=== PATIENT | female | born 1950 | race Caucasian/White ===

== ENCOUNTER 2016-08-06 16:00 | Emergency (ER) | payer MEDICARE ==
[2016-08-06 16:11] VITALS: PULSE 85; O2SAT 96
--- NOTE | 2016-08-06 16:26 | ERPHSYRPT ---
- History of Present Illness Time Seen by Provider: 08/06/16 16:23 Source: patient Exam Limitations: no limitations Patient Subjective Stated Complaint: PT STATES THAT SHE WENT TO THE [facility] TO CHECK HER. BLOOD PRESSURE TODAY AFTER SHE WOKE UP WITH A BLOOD. VESSEL IN HER EYE POPPED STATES HER BP WAS 180/119. PT STATES "I FEEL FINE" STATES TOOK HER BP MEDS. TOOK ONE AT 1500 Triage Nursing Assessment: PT ALERT WARM AND DRY RESP EASY NON LABORED PT AMBULATED TO ROOM WITHOUT DIFFICUTLY Physician History: c/o ruptured blood vessels in her left conjunctiva, also blood pressure was high at home but she thought she forgot to take her blood pressure meds in AM so she just took it before coming to ER Timing/Duration: today Associated Symptoms: denies symptoms Allergies/Adverse Reactions: acetaminophen [From Darvocet-N] Allergy (Verified 08/06/16 16:06) Antihistamines - Alkylamine Allergy (Verified 08/06/16 16:06) methylprednisolone [From Solu-Medrol] Allergy (Verified 08/06/16 16:06) propoxyphene [From Darvocet-N] Allergy (Verified 08/06/16 16:06) Sulfa (Sulfonamide Antibiotics) Allergy (Verified 08/06/16 16:06) Hx Tetanus, Diphtheria Vaccination/Date Given: Yes Hx Influenza Vaccination/Date Given: No Hx Pneumococcal Vaccination/Date Given: No Immunizations Up to Date: Yes - Review of Systems Constitutional: No Symptoms Eyes: Other (red eye left side) Ears, Nose, & Throat: No Symptoms Respiratory: No Symptoms Cardiac: No Symptoms Abdominal/Gastrointestinal: No Symptoms Genitourinary Symptoms: No Symptoms Musculoskeletal: No Symptoms Skin: No Symptoms - Past Medical History Neurological History: No Pertinent History Cardiac History: No Pertinent History, Hypertension Respiratory History: No Pertinent History Endocrine Medical History: No Pertinent History Musculoskeletal History: No Pertinent History, Rheumatoid Arthritis Other Medical History: NO OTHER PMH NOTED - Past Surgical History Past Surgical History: No - Social History Smoking Status: Current every day smoker How long have you smoked: 40 YEARS Exposure to second hand smoke: Yes Drug Use: none Patient Lives Alone: No - Female History Hx Last Menstrual Period: N/A - Nursing Vital Signs Nursing Vital Signs: Initial Vital Signs Temperature 98.6 F Temperature Source Oral Pulse Rate 85 Respiratory Rate 18 Blood Pressure [Right Arm] 186/84 - Physical Exam General Appearance: no apparent distress Eye Exam: PERRL/EOMI, other (conjuctival blood vessel rupture left eye) Neck Exam: normal inspection Respiratory Exam: normal breath sounds Cardiovascular Exam: regular rate/rhythm SpO2: 96 Oxygen Delivery: Room Air - Course Nursing assessment & vital signs reviewed: Yes - Progress Progress: unchanged Counseled pt/family regarding: diagnosis, need for follow-up - Departure Time of Disposition: 16:25 Departure Disposition: Home Clinical Impression: Conjunctival hemorrhage of left eye Hypertension Qualifiers: Hypertension type: essential hypertension Qualified Code(s): I10 - Essential ( primary) hypertension Condition: Stable Critical Care Time: No Referrals: NUBIA JARRETT [Primary Care Provider] - Additional Instructions: Please follow the instructions given to you. Please take your medication as prescribed if given. If symptoms recur or get worse, come back to the emergency room if you cannot reach your primary care physician, or call your primary care physician for an appointment. Again if your symptoms get worse, come back to the emergency room. Thanks for visiting emergency room, and let us take care of you.
[2016-08-06 16:34] VITALS: BP 143/74
== END 2016-08-06 16:34 | disposition home or self-care (01) ==
LOC: ED 16:00
DX: H11.32 Conjunctival hemorrhage, left eye (principal); I10 Essential (primary) hypertension
CPT/HCPCS: 99282

== ENCOUNTER 2023-01-02 16:28 | Observation (INO) | payer MEDICARE ==
[2023-01-02] MEDS ORDERED: TYLENOL 325 MG PO PRN (17:30)
[2023-01-02] MEDS ORDERED: Sodium Chloride 0.9% 1000 ML 1,000 ML IV SCH (18:30)
--- NOTE | 2023-01-02 19:18 | PCM.HP ---
History of Present Illness - Chief Complaint Chief Complaint: Anemia Date: 01/02/23 History of Present Illness: 72-year-old woman with a history of rheumatoid arthritis, hypertension, and sinus drainage, who presents from clinic with anemia. Patient is on chronic medications for arthritis, including heavy doses of ibuprofen, and gets regular labs from her physician in [place]. She had labs drawn recently, and was told to go to local clinic because of anemia, with hemoglobin 7.0. She was seen today in clinic, and repeat hemoglobin confirmed was low. Patient was told to come to the hospital and was admitted directly. Patient denies any dyspnea, hematochezia, melena, or hematemesis. No prior history of anemia or iron deficiency. However, she takes 8 to 10 tablets of ibuprofen each day for management of her pain, and has been doing the same for many years. She denies nausea or abdominal pain. Denies dyspnea on exertion, able to walk around [employer] shopping today. She has never had a colonoscopy, but has been doing fecal occult blood testing for her colon cancer screening. This was last done 2 years ago, and has always been negative. - Review of Systems Constitutional: No Fever, No Chills, No Weakness Eyes: No Discharge, No Eye Pain Ears, Nose, & Throat: No Symptoms Respiratory: No Cough, No Short Of Breath, No Wheezing Cardiac: Edema (Bilateral foot edema for the last few weeks), No Chest Pain, No Palpitations Abdominal/Gastrointestinal: No Abdominal Pain, No Nausea, No Vomiting, No Hematemesis, No Hematochezia, No Melena, No Appetite Changes Genitourinary Symptoms: No Dysuria, No Hematuria Musculoskeletal: Joint Pain (Chronic) Skin: No Symptoms Neurological: No Dizziness, No Focal Weakness, No Headache Psychological: No Symptoms Endocrine: No Symptoms Hematologic/Lymphatic: No Blood Clots, No Easy Bleeding, No Gum Bleeding, No Easy Bruising Immunological/Allergic: No Symptoms Medications & Allergies Home Medications: Home Medication List Aspirin 81 gm Chew [Baby Aspirin 81 mg Chew] 81 mg PO DAILY 01/02/23 [History Confirmed 01/02/23] Calcium Carbonate/Vitamin D3 [Calcium 500-Vit D3 200 Tablet] 1 each PO DAILY 01/02/23 [History Confirmed 01/02/23] Diazepam 5 mg [Valium 5 MG] 5 mg PO DAILY PRN PRN 01/02/23 [History Confirmed 01/02/23] Famotidine 20 mg [Pepcid 20 MG] 40 mg PO HS 01/02/23 [History Confirmed 01/02/23] Ferrous Sulfate 325 mg [Feosol 325 mg] 325 mg PO BID 01/02/23 [History Confirmed 01/02/23] Labetalol HCl 100 mg [Trandate 100 MG] 200 mg PO UD 01/02/23 [History Confirmed 01/02/23] Losartan/Hydrochlorothiazide [Losartan-Hctz 50-12.5 mg Tab] 50 mg PO DAILY 01/02/23 [History Confirmed 01/02/23] Nitrofurantoin Macrocrystal [Macrodantin] 50 mg PO HS 01/02/23 [History Confirmed 01/02/23] RX: Amlodipine Besylate 10 mg PO DAILY 01/02/23 [History Confirmed 01/02/23] RX: Atorvastatin Calcium 20 mg PO HS 01/02/23 [History Confirmed 01/02/23] RX: Cephalexin Mh 250 mg [Keflex 250 mg] 250 mg PO DAILY 01/02/23 [History Confirmed 01/02/23] RX: Chlorthalidone 25 mg PO DAILY 01/02/23 [History Confirmed 01/02/23] RX: Ipratropium [place] 0.5 mg [Atrovent 0.5MG NEBULE] 42 mcg IH TID 01/02/23 [History Confirmed 01/02/23] Spironolactone 25 mg [Aldactone 25 MG] 25 mg PO DAILY 01/02/23 [History Confirmed 01/02/23] Tofacitinib Citrate [Xeljanz] 5 mg PO BID 01/02/23 [History Confirmed 01/02/23] Tramadol HCl 50 mg [Ultram 50 mg] 50 mg PO TID PRN 01/02/23 [History Co nfirmed 01/02/23] Allergies/Adverse Reactions: Allergies Allergy/AdvReac Type Severity Reaction Status Date / Time acetaminophen Allergy Verified 08/06/16 16:06 [From Clarisse] Antihistamines - Alkylamine Allergy Verified 08/06/16 16:06 methylprednisolone Allergy Verified 08/06/16 16:06 [From Solu-Medrol] propoxyphene Allergy Verified 08/06/16 16:06 [From Darvocet-N] Sulfa (Sulfonamide Allergy Verified 08/06/16 16:06 Antibiotics) - Past Medical History Past Medical History: Yes Neurological History: No Pertinent History ENT History: No Pertinent History Cardiac History: High Cholesterol, Hypertension Respiratory History: No Pertinent History Endocrine Medical History: No Pertinent History Musculoskelatal History: Rheumatoid Arthritis GI Medical History: No Pertinent History History: No Pertinent History Comment: NO SX HX. RECURRENT UTIs - TAKING LO DOSE ANTIBIOTIC PROPHYLACTICALLY - Female History Are you now?: No - Past Surgical History Past Surgical History: No - Social History Smoking Status: Current every day smoker How long have you smoked: 40 YEARS Exposure to second hand smoke: Yes Alcohol: None Drug Use: none Significant Family History: no pertinent family hx - Physical Exam Vital Signs: Vital Signs - 24 hr Temp Pulse Resp BP Pulse Ox 01/02/23 16:59 97.1 F 86 19 134/63 92 L General Appearance: no apparent distress Neurologic Exam: alert, oriented x 3, normal mood/affect Respiratory Exam: normal breath sounds, No lungs clear, No respiratory distress Cardiovascular Exam: regular rate/rhythm, normal heart sounds, No murmur Gastrointestinal/Abdomen Exam: soft, No tenderness, No distention Results - Labs Lab/Micro Results: WBC 10.2, hemoglobin 7.3, platelet 445, MCV 78 Sodium 141, potassium 4.3, chloride 109, carbon oxide 22, BUN 18, creatinine 1.1, glucose 109 Iron 20, TIBC 521, iron saturation 4%, ferritin 4.4 Total protein 6.9, albumin 3.9, total bilirubin 0.5, AST 28, ALT 27, alk phos 77 Vitamin B12 483, folic acid greater than 19 - Radiology Impressions Radiology Exams & Impressions: Chest x-ray: Mild cephalization, but no infiltrate, effusion, or consolidation. (Images personally reviewed.) Assessment/Plan (1) Iron deficiency anemia Current Visit: Yes Status: Acute Assessment & Plan: 72-year-old woman with a history of arthritis and hypertension, here with asymptomatic iron-deficiency anemia. ## Iron-deficiency anemia no obvious source of bleeding. Most likely has a slow bleed in the GI tract. Biggest risk factor is gastritis or ulcer secondary to heavy use of NSAID, with 10 pills of ibuprofen per day. Per patient, no symptoms, but hemoglobin down to 7, and severely iron deficient. - Transfuse 1 unit PRBCs - Ferrous sulfate BID, famotidine 20 QHS, both started today in clinic - Repeat CBC in the morning - Check fecal occult blood - Will need referral for outpatient GI evaluation for upper and likely lower endoscopy - Encouraged to stop taking ibuprofen ## Rheumatoid arthritis - Continue home Xeljanz 5 BID - PRN tramadol ## Hypertension blood pressure currently controlled - Continue chlorthalidone 25, labetalol 200 daily, losartan 50 mg daily, and HCTZ 12.5 mg daily, amlodipine 10 mg daily, spironolactone 25 daily ## Recurrent UTI - Continue home suppressive Keflex and nitrofurantoin CODE STATUS: Full code Prophylaxis: SCDs, avoiding pharmacologic prophylaxis due to GI bleeding Dispo, likely home tomorrow if appropriate response to transfusion, with follow- up as an outpatient with GI for endoscopy Entirety of encounter took place via telemedicine. Patient consented to telemedicine. Code(s): D50.9 - IRON DEFICIENCY ANEMIA, UNSPECIFIED Telemedicine Encounter - Telemedicine Encounter Telemedicine Encounter: The entirety of this encounter was performed via Telemedicine"
[2023-01-02] MEDS ORDERED: ULTRAM 50 MG PO PRN (20:10)
[2023-01-02] MEDS ORDERED: Valium 5 MG PO PRN (20:12)
[2023-01-02] MEDS ORDERED: SODIUM CHLORIDE 0.45% IV ONE (20:19)
[2023-01-02] MEDS ORDERED: Pepcid 20 MG PO SCH (22:00)
[2023-01-02] MEDS ORDERED: ZOCOR 20MG PO SCH (22:00)
[2023-01-02] MEDS: FEOSOL 325 MG PO SCH (22:45)
[2023-01-03] MEDS ORDERED: Nicoderm CQ 21 MG TOP SCH ×2 (01:00→22:00)
[2023-01-03 02:34] LABS: Absolute Neutrophil Ct (ANC) 7.89 x10^3/uL (1.4-6.9); BASOPHIL % 0.5 % (0.0-0.4); Basophil (Absolute #) 0.05 x10^3/uL (0-0.4); Eosinophil % 1.2 % (0.00-5.0); Eosinophil (Absolute #) 0.12 x10^3/uL (0-0.5); Hematocrit 32.3 % (35-47); Hemoglobin 9.4 g/dL (12.0-16.0); IMMATURE GRAN # 0.07 x10^3u/L (0.00-0.03); IMMATURE GRAN % 0.7 % (0.00-0.4); Lymphocyte (Absolute #) 0.95 x10^3/uL (1.0-4.6); Lymphocytes % 9.3 % (24.0-44.0); Mean Cell Volume 78.6 fL (78-100); Mean Corpuscular Hemoglobin 22.9 pg (26-32); Mean Corpuscular Hgb Concent. 29.1 g/dL (32-36); Mean Platelet Volume 9.6 fL (7.5-11.0); Monocyte (Absolute #) 1.13 x10^3/uL (0.0-1.3); Monocytes % 11.1 % (0.0-12.0); NUCLEATED RBC # 0.02 x10^3u/L (0.00-0.01); NUCLEATED RBC % 0.2 % (0.00-0.1); Neutrophil % 77.2 % (36.0-66.0); Platelet Count 395 x10^3/uL (150-450); Red Blood Count 4.11 x10^6/uL (4.1-5.4); Red Cell Distribution Width 19.3 % (11.5-14.0); White Blood Count 10.2 x10^3/uL (4.0-10.5)
[2023-01-03 02:38] LABS: ANION GAP 14.7 MEQ/L (5-15); BLOOD UREA NITROGEN 15 mg/dL (7-17); CHLORIDE 109 mmol/L (98-107); Carbon Dioxide 20 mmol/L (22-30); Creatinine 1 0.95 mg/dL (0.52-1.04); EST GLOMERULAR FILTRATION RATE > 60.0 ML/MIN; Glucose 77 mg/dL (74-106); Potassium 3.8 mmol/L (3.5-5.1); SODIUM 140 mmol/L (137-145)
[2023-01-03] MEDS ORDERED: TYLENOL 325 MG ONE (06:17)
[2023-01-03 07:22] VITALS: BP 177/76; PULSE 91; O2SAT 96
[2023-01-03] MEDS ORDERED: Valium 5 MG PO PRN (07:30)
[2023-01-03] MEDS ORDERED: MEDICATION INTERVENTION MC SCH ×2 (07:45)
[2023-01-03] MEDS: FEOSOL 325 MG PO SCH (09:15)
[2023-01-03] MEDS ORDERED: CHLORTHALIDONE PO SCH (10:00)
[2023-01-03] MEDS ORDERED: Cozaar 50 MG PO SCH (10:00)
[2023-01-03] MEDS ORDERED: Calcium 500MG W/Vit D Tablet PO SCH ×2 (10:00)
[2023-01-03] MEDS ORDERED: BABY ASPIRIN 81 MG CHEW PO SCH (10:00)
[2023-01-03] MEDS ORDERED: hydroDIURIL 25 MG PO SCH (10:00)
[2023-01-03] MEDS ORDERED: TOFACITINIB CITRATE 10 MG PO SCH (10:00)
[2023-01-03] MEDS ORDERED: NORVASC 5 MG PO SCH (10:00)
[2023-01-03] MEDS ORDERED: Trandate 100 MG PO SCH ×2 (10:00→22:00)
[2023-01-03] MEDS ORDERED: NON-FORMULARY ITEM (Amlodipine Besylate [Amlodipine Besylate] 10 MG Tablet) PO SCH (10:00)
[2023-01-03] MEDS ORDERED: NON-FORMULARY ITEM (Losartan/Hydrochlorothiazide [Losartan-Hctz 50-12.5 Mg Tab] 1 EACH Tab PO SCH (10:00)
[2023-01-03] MEDS ORDERED: ECOTRIN 81 MG PO SCH (10:00)
[2023-01-03] MEDS ORDERED: Aldactone 25 MG PO SCH (10:00)
[2023-01-03] MEDS ORDERED: Atrovent 0.5MG NEBULE IH SCH (10:00)
--- NOTE | 2023-01-03 10:41 | PCM.DS ---
Discharge Summary Date of Admission: 01/02/23 16:44 Date of Discharge: 01/03/2023 Admitting Physician: ANSELMO SCHROEDER MD Primary Care Provider: DEANDRE TAMAYO Allergies Allergies acetaminophen [From Darvocet-N] Allergy (Verified 08/06/16 16:06) Antihistamines - Alkylamine Allergy (Verified 08/06/16 16:06) methylprednisolone [From Solu-Medrol] Allergy (Verified 08/06/16 16:06) propoxyphene [From Darvocet-N] Allergy (Verified 08/06/16 16:06) Sulfa (Sulfonamide Antibiotics) Allergy (Verified 08/06/16 16:06) Hospital Summary - Hospital Course Hospital Course: 72-year-old with a history of arthritis, hypertension, and chronic sinus draina ge, who was admitted from clinic after found to have severe anemia with hemoglobin 7. Patient has a heavy use of ibuprofen, up to 10 pills a day for years, for treatment of pain from her arthritis. She denies any dyspnea, hematochezia, melena, or hematemesis. No prior history of anemia or iron defic iency. However, on lab work, confirmed hemoglobin was 7.3, and had severe iron- deficiency, with a ferritin of 4 and an iron saturation of 4%. She was transfused 1 unit of packed red blood cells, with appropriate increase of hemoglobin from 7-9.3. She was started on ferrous sulfate BID and famotidine QHS. Counseled patient on need to stop ibuprofen, and will need an outpatient GI evaluation for upper and likely lower endoscopy. Patient understood plan, and will arrange for GI follow-up. Entirety of encounter took place via telemedicine. Patient consented to telemedicine. Greater than 30 minutes managing discharge. - Vitals & Intake/Output Vital Signs: Vital Signs Temperature 98.2 F 01/03/23 07:21 Pulse Rate 91 H 01/03/23 07:21 Respiratory Rate 18 01/03/23 07:21 Blood Pressure 177/76 01/03/23 07:21 O2 Sat by Pulse Oximetry 96 01/03/23 07:21 Intake & Output: Intake & Output 12/31/22 01/01/23 01/02/23 01/03/23 11:59 11:59 11:59 11:59 Intake Total 1485 Output Total 1050 Balance 435 Weight 87 kg - Lab Result Diagrams: 01/03/23 02:24 01/03/23 02:24 Lab Results-Last 24 Hrs: Lab Results-Last 24 Hours 01/03/23 01/03/23 Range/Units 02:24 02:24 WBC 10.2 (4.0-10.5) x10^3/uL RBC 4.11 (4.1-5.4) x10^6/uL Hgb 9.4 L D (12.0-16.0) g/dL Hct 32.3 L (35-47) % MCV 78.6 (78-100) fL MCH 22.9 L (26-32) pg MCHC 29.1 L (32-36) g/dL RDW 19.3 H (11.5-14.0) % Plt Count 395 (150-450) x10^3/uL MPV 9.6 (7.5-11.0) fL Gran % 77.2 H (36.0-66.0) % Immature Gran % (Auto) 0.7 H (0.00-0.4) % Nucleat RBC Rel Count 0.2 H (0.00-0.1) % Eos # (Auto) 0.12 (0-0.5) x10^3/uL Immature Gran # (Auto) 0.07 H (0.00-0.03) x10^3u/L Absolute Lymphs (auto) 0.95 L (1.0-4.6) x10^3/uL Absolute Monos (auto) 1.13 (0.0-1.3) x10^3/uL Absolute Nucleated RBC 0.02 H (0.00-0.01) x10^3u/L Lymphocytes % 9.3 L (24.0-44.0) % Monocytes % 11.1 (0.0-12.0) % Eosinophils % 1.2 (0.00-5.0) % Basophils % 0.5 (0.0-0.4) % Absolute Granulocytes 7.89 H (1.4-6.9) x10^3/uL Basophils # 0.05 (0-0.4) x10^3/uL Sodium 140 (137-145) mmol/L Potassium 3.8 (3.5-5.1) mmol/L Chloride 109 H (98-107) mmol/L Carbon Dioxide 20 L (22-30) mmol/L Anion Gap 14.7 (5-15) MEQ/L BUN 15 (7-17) mg/dL Creatinine 0.95 (0.52-1.04) mg/dL Estimated GFR > 60.0 ML/MIN Glucose 77 (74-106) mg/dL Calcium 9.0 (8.4-10.2) mg/dL Discharge Exam General Appearance: no apparent distress Neurologic Exam: alert, oriented x 3, normal mood/affect, sensation nml, No motor deficits Eye Exam: eyes nml inspection Ears, Nose, Throat Exam: No dry mucous membranes Respiratory Exam: normal breath sounds, lungs clear, No respiratory distress, No accessory muscle use Cardiovascular Exam: regular rate/rhythm, normal heart sounds, No murmur Gastrointestinal/Abdomen Exam: soft, No tenderness, No distention, No mass Skin Exam: warm, dry, No rash Final Diagnosis/Problem List - Final Discharge Diagnosis/Problem (1) Iron deficiency anemia Current Visit: Yes Status: Acute Code(s): D50.9 - IRON DEFICIENCY ANEMIA, UNSPECIFIED - Discharge Discharge Date: 01/03/23 Disposition: Home, Self-Care Condition: Stable Prescriptions: Continue Spironolactone 25 mg [Aldactone 25 MG] 25 mg PO DAILY Aspirin 81 gm Chew [Baby Aspirin 81 mg Chew] 81 mg PO DAILY Tramadol HCl 50 mg [Ultram 50 mg] 50 mg PO TID PRN Tofacitinib Citrate [Xeljanz] 5 mg PO BID Nitrofurantoin Macrocrystal [Macrodantin] 50 mg PO HS Losartan/Hydrochlorothiazide [Losartan-Hctz 50-12.5 mg Tab] 50 mg PO DAILY Labetalol HCl 100 mg [Trandate 100 MG] 200 mg PO UD Ipratropium [place] 0.5 mg [Atrovent 0.5MG NEBULE] 42 mcg IH TID Diazepam 5 mg [Valium 5 MG] 5 mg PO DAILY PRN PRN PRN Reason: Anxiety Chlorthalidone 25 mg PO DAILY Cephalexin Mh 250 mg [Keflex 250 mg] 250 mg PO DAILY Calcium Carbonate/Vitamin D3 [Calcium 500-Vit D3 200 Tablet] 1 each PO DAILY Atorvastatin Calcium 20 mg PO HS Amlodipine Besylate 10 mg PO DAILY Ferrous Sulfate 325 mg [Feosol 325 mg] 325 mg PO BID Famotidine 20 mg [Pepcid 20 MG] 40 mg PO HS Instructions: Anemia Caused by Low Iron, Adult (DC) Additional Instructions: You will need referral to a dowel pointer for evaluation of your low iron levels and anemia. You will likely need to get an upper and lower endoscopy to evaluate. Please refrain from taking ibuprofen as this can cause worsening inflammation of your stomach and bleeding. Follow up with: DEANDRE TAMAYO NP [Primary Care Provider] - 01/10/23 9:00 am Forms: Discharge Instructions
[2023-01-03 13:18] LABS: IFOB TEST RESULTS POSITIVE (NEGATIVE)
== END 2023-01-03 10:53 | disposition home or self-care (01) ==
LOC: MED SURG 16:44
PROVIDERS: ADMIT Internal Medicine; ATTEND Internal Medicine
DX: D50.9 Iron deficiency anemia, unspecified (principal); M06.9 Rheumatoid arthritis, unspecified; I10 Essential (primary) hypertension; E78.5 Hyperlipidemia, unspecified; Z79.899 Other long term (current) drug therapy; Z20.828 Contact with and (suspected) exposure to other viral communicable diseases; Z72.0 Tobacco use
CPT/HCPCS: 36415; 80048; 85025; G0328; Q3014; 82274; 93268; G0379; A9270-GY; G0378

== ENCOUNTER → 2023-07-04 | Day surgery (SDC) | payer MEDICARE, SELFPAY ==
[~2023-07-04] MED LIST: DIPRIVAN 200 MG/20 ML IV ONE; Lactated Ringers 1,000 ML IV ONE; XYLOCAINE-MPF 1% 5ML SDV IJ ONE
--- NOTE | 2023-07-04 14:00 | XRAY ---
Indication: Left piriformis injection. Intraoperative fluoroscopy provided for 14 seconds. Single digital spot images submitted for interpretation demonstrates posterior needle tip projecting over the left piriformis. Small amount of contrast injected for needle tip placement. Correlate with intraoperative findings/report.
--- NOTE | 2023-07-04 16:56 | XRAY ---
14 seconds of fluoroscopy was used in surgery for a left piriformis injection.
== END ==
LOC: SDC-PAIN 11:41
PROVIDERS: ATTEND Psychiatry & Neurology Pain Medicine
DX: M79.18 Myalgia, other site (principal); E11.9 Type 2 diabetes mellitus without complications; Z79.899 Other long term (current) drug therapy
CPT/HCPCS: 20552; 72170; 77002; 99100; J2704; Q9966

== ENCOUNTER 2023-08-23 07:45 | Day surgery (SDC) | payer MEDICARE ==
[2023-08-23] MEDS ORDERED: Sodium Chloride 0.9(Preservative Free) 10 ML IJ ONE (07:46)
[2023-08-23] MEDS ORDERED: XYLOCAINE-MPF 1% 5ML SDV IJ ONE (07:46)
[2023-08-23] MEDS ORDERED: Decadron 4 MG INJ IV ONE (07:46)
[2023-08-23] MEDS ORDERED: DIPRIVAN 200 MG/20 ML IV ONE (09:31)
--- NOTE | 2023-08-23 10:55 | XRAY ---
Indication: Left L4-S1 transforaminal REEMA. Intraoperative fluoroscopy provided for 25 seconds. 3 digital spot image submitted for interpretation demonstrates posterior needle tips projecting over the expected left L4 and L5 nerve roots. Small amount of contrast injected for needle tip. Correlate with intraoperative findings/report.
--- NOTE | 2023-08-23 10:57 | XRAY ---
Indication: Left piriformis injection. Intraoperative fluoroscopy provided for 9 seconds. Single digital spot image submitted for interpretation demonstrates posterior needle tip projecting over left piriformis. Small amount of contrast injected for needle tip. Correlate with intraoperative findings/report.
--- NOTE | 2023-08-23 11:19 | XRAY ---
25 seconds of fluoroscopy was used in surgery for a left L4-S1 transforaminal REEMA.
--- NOTE | 2023-08-23 11:20 | XRAY ---
9 seconds of fluoroscopy was used in surgery for a left piriformis injection.
[2023-08-23] MEDS ORDERED: Lactated Ringers 1,000 ML IV ONE (12:03)
== END 2023-08-23 10:18 | disposition home or self-care (01) ==
LOC: SDC-PAIN 07:45
PROVIDERS: ATTEND Psychiatry & Neurology Pain Medicine
DX: M54.16 Radiculopathy, lumbar region (principal); M79.18 Myalgia, other site
CPT/HCPCS: 20552; 64483; 64484; 72100; 72170; 77002; 77003; 99100; J1100; J2704; Q9966

== ENCOUNTER 2024-03-19 13:57 | Day surgery (SDC) | payer MEDICARE ==
[2024-03-19] MEDS ORDERED: LIDOCAINE HCL 1% 50 MG/5 ML VL PF IJ ONE (13:58)
[2024-03-19] MEDS ORDERED: Sodium Chloride 0.9(Preservative Free) 10 ML IJ ONE (13:58)
[2024-03-19] MEDS ORDERED: Decadron 4 MG INJ IV ONE (13:58)
[2024-03-19] MEDS ORDERED: Versed 2 MG/2 ML Injection ONE (14:34)
[2024-03-19] MEDS ORDERED: DIPRIVAN 200 MG/20 ML IV ONE (15:19)
[2024-03-19] MEDS ORDERED: MORPHINE SULFATE 2 MG INJ ONE (15:41)
[2024-03-19] MEDS ORDERED: Lactated Ringers 1,000 ML IV ONE (16:11)
--- NOTE | 2024-03-19 17:40 | XRAY ---
Indication: Left L4-S1 transforaminal REEMA. Intraoperative fluoroscopy provided for 22 seconds. 3 digital spot image submitted for interpretation demonstrates posterior needle tips projecting over the expected left L4 and L5 nerve roots. Small amount of contrast injected for needle tip placement. Correlate with intraoperative findings/report.
--- NOTE | 2024-03-19 17:42 | XRAY ---
Indication: Left piriformis injection. Intraoperative fluoroscopy provided for 25 seconds. Single digital spot image submitted for interpretation demonstrates posterior needle tip projecting over the left piriformis. Small amount of contrast injected for needle tip placement. Correlate with intraoperative findings/report.
--- NOTE | 2024-03-19 17:44 | XRAY ---
22 seconds of fluoroscopy was used in surgery for a left L4-S1 transforaminal REEMA.
--- NOTE | 2024-03-19 17:44 | XRAY ---
25 seconds of fluoroscopy was used in surgery for a left piriformis injection.
== END 2024-03-19 16:03 | disposition home or self-care (01) ==
LOC: SDC-PAIN 13:57
PROVIDERS: ATTEND Psychiatry & Neurology Pain Medicine
DX: M54.16 Radiculopathy, lumbar region (principal); M79.18 Myalgia, other site
CPT/HCPCS: 20552; 64483; 64484; 72100; 72170; 77002; 77003; 99100; J1100; J2001; J2250; J2270; J2704; Q9966

== ENCOUNTER 2024-04-30 13:12 | Day surgery (SDC) | payer MEDICARE, SELFPAY ==
[2024-04-30] MEDS ORDERED: Sodium Chloride 0.9(Preservative Free) 10 ML IJ ONE (13:13)
[2024-04-30] MEDS ORDERED: LIDOCAINE HCL 1% AMPUL 5 ML IJ ONE (13:13)
[2024-04-30] MEDS ORDERED: DIPRIVAN 200 MG/20 ML IV ONE (15:25)
--- NOTE | 2024-04-30 16:51 | XRAY ---
Indication: Caudal REEMA. Intraoperative fluoroscopy provided for 19 seconds. 4 digital spot image submitted for interpretation demonstrates caudal needle tip projecting mid sacrum. Small amount of contrast injected for needle tip placement. Correlate with intraoperative findings/report.
--- NOTE | 2024-04-30 16:56 | XRAY ---
19 seconds of fluoroscopy was used in surgery for a caudal REEMA.
== END 2024-04-30 15:57 | disposition home or self-care (01) ==
LOC: SDC-PAIN 13:12
PROVIDERS: ATTEND Psychiatry & Neurology Pain Medicine
DX: M54.16 Radiculopathy, lumbar region (principal)
CPT/HCPCS: 62323; 72220; 77003; J2704; Q9966